=== PATIENT | female | born 1970 | race American Indian/Alaskan Native ===

== ENCOUNTER 2017-11-30 12:59 | Inpatient (IN) | payer MEDICARE, OTHER ==
[2017-11-30 13:21] VITALS: BMI 53.1
--- NOTE | 2017-11-30 14:21 | ED PDOC ---
HPI: Psych/Substance Abuse Time Seen by Provider: 11/30/17 13:43 Chief Complaint (Nursing): Psychiatric Evaluation Chief Complaint (Provider): Worsening depression History Per: Patient History/Exam Limitations: no limitations Onset/Duration Of Symptoms: Other (x4 months) Additional History Per: Family (daughter at bedside) Additional Complaint(s): 47 year old female, with a past medical history of depression and anxiety, presents to ED for evaluation of worsening depression since August 2017. Patient reports that on August 31, she lost her grandmother and since then, she states she has not been sleeping well and cannot concentrate. She indicates she saw her PMD for this and she was prescribed Zyprexa, which patient has not been taking every day as prescribed. She reports no relief of symptoms and felt overwhelmed today as she couldn't handle the noise of her children, prompting visit to the ED for psychiatric evaluation. She indicates that she thinks of committing suicide often, but has no plan. Otherwise denies hallucinations and homicidal ideation. Patient is unsure of LMP. Psych MD: Dr. 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"), Bronchitis, Depression, Gastritis, HTN, Migraine Denies: Chronic Kidney Disease - Surgical History Surgical History: Other surgeries: Gastric bypass and procedure to right foot - Family History Family History: States: Unknown Family Hx - Home Medications Home Medications: Ambulatory Orders Medication Instructions Recorded Alprazolam [Xanax] 0.5 mg PO HS PRN #0 tab 06/14/16 Escitalopram [Lexapro] 20 mg PO DAILY #0 tab 06/14/16 Pantoprazole [Protonix] 40 mg PO DAILY #0 ect 06/14/16 Acetaminophen/Codeine 1 ea PO Q8 PRN #0 tab 07/27/16 [Tylenol/Codeine 300 MG/30 MG] Aspirin [Ecotrin] 81 mg PO DAILY tabec 07/27/16 DULoxetine [Cymbalta] 60 mg PO HS ecc 07/27/16 Enalapril Maleate [Vasotec] 10 mg PO DAILY tab 07/27/16 Rosuvastatin Calcium [Crestor] 20 mg PO HS tab 07/27/16 hydroCHLOROthiazide [Microzide] 12.5 mg PO DAILY cap 07/27/16 - Allergies Allergies/Adverse Reactions: Allergies Allergy/AdvReac Type Severity Reaction Status Date / Time ibuprofen AdvReac Unknown ANAPHYLAXIS Verified 11/30/17 14:34 Review of Systems ROS Statement: Except As Marked, All Systems Reviewed And Found Negative Psych: Positive for: Depression, Suicidal ideation. Negative for: Other ( suicidal plan, hallucinations, or homicidal ideation) Physical Exam - Reviewed Nursing Documentation Reviewed: Yes Vital Signs Reviewed: Yes - Physical Exam Comments: GENERAL APPEARANCE: Patient is awake, alert, oriented x 3, in no acute distress. (+) morbid obesity SKIN: Warm, dry; (-) cyanosis EYES: (-) conjunctival pallor, (-) scleral icterus, (-) nystagmus. ENMT: Mucous membranes moist. Airway patent: (-) stridor. NECK: Supple (-) tenderness, (-) stiffness CHEST AND RESPIRATORY: (-) rales, (-) rhonchi, (-) wheezes; Decreased breath sounds bilaterally. ABDOMEN: Soft, (-) distention, (-) tenderness, (-) guarding. NEURO AND PSYCH: Mental status as above. Affect: flat bobcat operator: Intact. Pupils equal and reactive; EOMI; (-) facial asymmetry ; tongue and uvula midline. Strength symmetric. - Laboratory Results Result Diagrams: 12/01/17 05:30 12/01/17 05:30 Urine POC: Negative - ECG O2 Sat by Pulse Oximetry: 96 (RA) Pulse Ox Interpretation: Normal Medical Decision Making Medical Decision Making: Initial Impression: depression, psychiatric evaluation Initial Plan: Crisis evaluation Urine 1430 Urine : Negative Per crisis evaluation, patient to be admitted for Depression per Dr Pierre. -CBC, CMP, Urine Drug Screen, Urinalysis, CXR, EKG ordered. 1550 EKG: NSR @ 89 bpm (-) ST elevations, QTc 467 1615 Labs reviewed and patient noted to have UTI. Macrobid 100mg PO ordered. Urine culture ordered. CXR reviewed: HISTORY: admission COMPARISON: No prior. TECHNIQUE: Chest PA and lateral FINDINGS: LUNGS: Deae-et-arndygxe pulmonary vascular congestion is noted. No evidence of focal consolidation in the lungs. PLEURA: Blunting of the right costophrenic angle likely due to pleural effusion. There is also possible trace fluid in the right fissure. CARDIOVASCULAR: Normal. OSSEOUS STRUCTURES: No significant abnormalities. VISUALIZED UPPER ABDOMEN: Normal. OTHER FINDINGS: None. IMPRESSION: Tdwd-bf-ofrwrbbi vascular congestion. Suspicious for small right pleural effusion. [address] Lilly, patient will be admitted to med/surg floor with psychiatry on consult. Case discussed with Dr Magana, covering for Dr Way, who admits for Dr Gudino' s patient's. Agreeable to admission at this time. Repeat HR: 92 BNP and Troponin ordered. 1745 BNP: 454 Troponin: < 0.01 Arrangements made for admission. ------ Scribe Attestation: Documented by Puneet Clayton acting as a scribe for Jessica PARISH. Provider Scribe Attestation: All medical record entries made by the Scribe were at my direction and personally dictated by me. I have reviewed the chart and agree that the record accurately reflects my personal performance of the history, physical exam, medical decision making, and the department course for this patient. I have also personally directed, reviewed, and agree with the discharge instructions and disposition. Disposition - Clinical Impression Clinical Impression: UTI (urinary tract infection), Depression, Pleural effusion, Pulmonary vascular congestion - Patient ED Disposition Is Patient to be Admitted: Yes Counseled Patient/Family Regarding: Studies Performed, Diagnosis - Disposition Disposition Time: 17:33 Condition: FAIR - Pt Status Changed To: Hospital Disposition Of: Inpatient - Admit Certification Admit to Inpatient:: After my assessment, the patient will require hospitalization for at least two midnights. This is because of the severity of symptoms shown, intensity of services needed, and/or the medical risk in this patient being treated as an outpatient. Results - Lab Results Lab Results: 11/30/17 11/30/17 11/30/17 14:51 14:51 14:51 WBC RBC Hgb Hct MCV MCH MCHC RDW Plt Count MPV Neut % (Auto) Lymph % (Auto) [place] % (Auto) Eos % (Auto) Baso % (Auto) Neut # (Auto) Lymph # (Auto) [place] # (Auto) Eos # (Auto) Baso # (Auto) Sodium 139 Potassium 3.9 Chloride 101 Carbon Dioxide 29 Anion Gap 13 BUN 10 Creatinine 0.7 Est GFR ( Amer) > 60 Est GFR (Non-Af Amer) > 60 Random Glucose 100 Calcium 8.0 L Total Bilirubin 0.4 AST 18 ALT 24 Alkaline Phosphatase 78 Total Protein 7.0 Albumin 3.7 Globulin 3.3 Albumin/Globulin Ratio 1.1 Urine Color Yellow Urine Clarity Cloudy Urine pH 5.0 Ur Specific [place] 1.025 Urine Protein Negative Urine Glucose (UA) Neg Urine Ketones Negative Urine Blood Negative Urine Nitrate Positive H Urine Bilirubin Negative Urine Urobilinogen 0.2-1.0 Ur Leukocyte Esterase Large Urine RBC (Auto) 3 Urine Microscopic WBC 13 H Ur Squamous Epith Cells 3 Urine Bacteria Occ H Urine Opiates Screen Positive H Urine Methadone Screen Negative Ur Barbiturates Screen Negative Ur Phencyclidine Scrn Negative Ur Amphetamines Screen Negative U Benzodiazepines Scrn Positive U Oth Cocaine Metabols Negative U Cannabinoids Screen Positive H 11/30/17 14:51 WBC 13.0 H RBC 4.60 Hgb 9.4 L Hct 32.2 L MCV 69.8 L MCH 20.3 L MCHC 29.1 L RDW 20.4 H Plt Count 242 MPV 9.1 Neut % (Auto) 68.4 Lymph % (Auto) 24.7 [place] % (Auto) 6.0 Eos % (Auto) 0.6 Baso % (Auto) 0.3 Neut # (Auto) 8.8 H Lymph # (Auto) 3.2 [place] # (Auto) 0.8 Eos # (Auto) 0.1 Baso # (Auto) 0.0 Sodium Potassium Chloride Carbon Dioxide Anion Gap BUN Creatinine Est GFR ( Amer) Est GFR (Non-Af Amer) Random Glucose Calcium Total Bilirubin AST ALT Alkaline Phosphatase Total Protein Albumin Globulin Albumin/Globulin Ratio Urine Color Urine Clarity Urine pH Ur Specific [place] Urine Protein Urine Glucose (UA) Urine Ketones Urine Blood Urine Nitrate Urine Bilirubin Urine Urobilinogen Ur Leukocyte Esterase Urine RBC (Auto) Urine Microscopic WBC Ur Squamous Epith Cells Urine Bacteria Urine Opiates Screen Urine Methadone Screen Ur Barbiturates Screen Ur Phencyclidine Scrn Ur Amphetamines Screen U Benzodiazepines Scrn U Oth Cocaine Metabols U Cannabinoids Screen
[2017-11-30 14:59] LABS: SQUAMOUS EPITHIAL 3 /hpf (0-5); URINE BACTERIA OCC (<OCC); URINE BILIRUBIN NEGATIVE (NEGATIVE); URINE BLOOD NEGATIVE (NEGATIVE); URINE CLARITY CLOUDY (Clear); URINE COLOR YELLOW (YELLOW); URINE GLUCOSE (UA) NEG (Normal); URINE LEUKOCYTE ESTERASE LARGE Leu/uL (Negative); URINE PROTEIN NEGATIVE (NEGATIVE); URINE UROBILINOGEN 0.2-1.0 mg/dL (0.2-1.0)
[2017-11-30 15:08] LABS: ALB/GLOB RATIO 1.1 (1.0-2.1); ALBUMIN 3.7 g/dL (3.5-5.0); ALT/SGPT 24 U/L (9-52); AST/SGOT 18 U/L (14-36); BLOOD UREA NITROGEN 10 mg/dl (7-17); GFR AFRICAN-AMERICAN > 60; GFR NON-AFRICAN AMERICAN > 60
[2017-11-30 15:09] LABS: EOS # 0.1 K/uL (0.0-0.7); EOS % 0.6 % (0.0-4.0); HEMOGLOBIN 9.4 g/dL (12.0-16.0); MONO # 0.8 K/uL (0.0-0.8)
[2017-11-30 15:34] LABS: BASO % 0.3 % (0.0-2.0); LYMPH # 3.2 K/uL (1.0-4.3); LYMPH % 24.7 % (20.0-40.0); MEAN CELL VOLUME 69.8 fl (81.0-99.0); MEAN CORPUSCULAR HEMOGLOBIN 20.3 pg (27.0-31.0); MEAN CORPUSCULAR HGB CONC 29.1 g/dL (33.0-37.0); MEAN PLATELET VOLUME 9.1 fl (7.2-11.7); NEUT # 8.8 K/uL (1.8-7.0); NEUT % 68.4 % (50.0-75.0); NRBC % 0.3 % (0.0-0.0); RBC 4.6 Mil/uL (3.80-5.20); RED CELL DISTRIBUTION WIDTH 20.4 % (11.5-14.5)
[2017-11-30 15:36] LABS: BARBITURATES, UR NEGATIVE (NEGATIVE); BENZODIAZEPINES, UR POSITIVE (NEGATIVE); OPIATES, UR POSITIVE (NEGATIVE); PHENCYCLIDINE, UR NEGATIVE (NEGATIVE)
--- NOTE | 2017-11-30 16:22 | RAD ---
HISTORY: admission COMPARISON: No prior. TECHNIQUE: Chest PA and lateral FINDINGS: LUNGS: Yfzj-hb-bacigryj pulmonary vascular congestion is noted. No evidence of focal consolidation in the lungs. PLEURA: Blunting of the right costophrenic angle likely due to pleural effusion. There is also possible trace fluid in the right fissure. CARDIOVASCULAR: Normal. OSSEOUS STRUCTURES: No significant abnormalities. VISUALIZED UPPER ABDOMEN: Normal. OTHER FINDINGS: None. IMPRESSION: Qept-rp-jevadkzf vascular congestion. Suspicious for small right pleural effusion.
[2017-11-30 17:43] LABS: B-TYPE NATRIURETIC PEPTIDE 454 pg/ml (0-450)
[2017-12-01] MEDS: Oxycodone/Acetaminophen 5/325 mg Tab PO PRN ×4 (01:06→21:43)
[2017-12-01 07:14] LABS: BASO % 0.3 % (0.0-2.0); EOS # 0.1 K/uL (0.0-0.7); EOS % 1.1 % (0.0-4.0); HEMOGLOBIN 9.1 g/dL (12.0-16.0); LYMPH # 3.1 K/uL (1.0-4.3); LYMPH % 29.7 % (20.0-40.0); MEAN CORPUSCULAR HEMOGLOBIN 20.3 pg (27.0-31.0); MEAN CORPUSCULAR HGB CONC 28.9 g/dL (33.0-37.0); MEAN PLATELET VOLUME 9.2 fl (7.2-11.7); MONO # 0.6 K/uL (0.0-0.8); MONO % 5.7 % (0.0-10.0); NEUT # 6.6 K/uL (1.8-7.0); NEUT % 63.2 % (50.0-75.0); NRBC % 0.1 % (0.0-0.0); RBC 4.5 Mil/uL (3.80-5.20); RED CELL DISTRIBUTION WIDTH 20.3 % (11.5-14.5); WHITE BLOOD COUNT 10.4 K/uL (4.8-10.8)
[2017-12-01 07:31] LABS: ALB/GLOB RATIO 1.1 (1.0-2.1); ALBUMIN 3.6 g/dL (3.5-5.0); ALT/SGPT 23 U/L (9-52); AST/SGOT 29 U/L (14-36); B-TYPE NATRIURETIC PEPTIDE 308 pg/ml (0-450); BLOOD UREA NITROGEN 10 mg/dl (7-17); CALCIUM 8.3 mg/dL (8.4-10.2); GFR AFRICAN-AMERICAN > 60; GFR NON-AFRICAN AMERICAN > 60
[2017-12-01] MEDS: Potassium Chloride 20 mEq ER Tab PO SCH (08:45)
[2017-12-01] MEDS: Enoxaparin 60 mg Syringe SC SCH (08:45)
[2017-12-01] MEDS: Pantoprazole 40 mg EC Tab PO SCH (08:46)
[2017-12-01] MEDS ORDERED: Enoxaparin 30 mg Syringe SC SCH (09:00)
--- NOTE | 2017-12-01 11:35 | CP.PCM.HP ---
History of Present Illness - History of Present Illness History of Present Illness: This is a 47 y/o female admitted for evaluation of worsening of depressive symptoms. She claims that she sought ER evaluation after having a a very bad nightmare at home. She was short of breath after the episode but denies chest pain. Past Patient History - Infectious Disease Hx of Infectious Diseases: None - Past Medical History & Family History Past Medical History?: Yes - Past Social History Smoking Status: Light Smoker < 10 Cigarettes Daily - CARDIAC Hx Cardiac Disorders: Yes Hx Hypertension: Yes - PULMONARY Hx Respiratory Disorders: Yes Hx Bronchitis: Yes - NEUROLOGICAL Hx Neurological Disorder: Yes Hx Migraine: Yes - HEENT Hx HEENT Problems: No - RENAL Hx Chronic Kidney Disease: No - HEMATOLOGICAL/ONCOLOGICAL Hx Cancer: No Hx Human Immunodeficiency Virus (HIV): No - INTEGUMENTARY Hx Dermatological Problems: No - MUSCULOSKELETAL/RHEUMATOLOGICAL Hx Musculoskeletal Disorders: Yes Hx Arthritis: Yes Hx Falls: Yes - GASTROINTESTINAL Hx Gastrointestinal Disorders: Yes Hx Gastritis: Yes - GENITOURINARY/GYNECOLOGICAL Hx Sexually Transmitted Disorders: No - PSYCHIATRIC Hx Psychophysiologic Disorder: Yes Hx Anxiety: Yes Hx Depression: Yes Hx Substance Use: Yes (marijuana; (+) nitrates and opiates in [place]) - SURGICAL HISTORY Hx Surgeries: Yes Hx Section: Yes Other/Comment: foot surg; stomach bypass - ANESTHESIA Hx Anesthesia: Yes Hx Anesthesia Reactions: No Hx Malignant Hyperthermia: No Meds Allergies/Adverse Reactions: Allergies Allergy/AdvReac Type Severity Reaction Status Date / Time ibuprofen AdvReac Unknown ANAPHYLAXIS Verified 11/30/17 14:34 Results - Vital Signs Recent Vital Signs: Last Vital Signs Temp 98.1 F 12/01/17 08:31 Pulse 85 12/01/17 08:31 Resp 20 12/01/17 08:31 BP 102/67 12/01/17 08:45 Pulse Ox 91 L 12/01/17 08:31 - Labs Result Diagrams: 12/01/17 05:30 12/01/17 05:30 Labs: Laboratory Results - last 24 hr 11/30/17 11/30/17 11/30/17 14:51 14:51 14:51 WBC 13.0 H RBC 4.60 Hgb 9.4 L Hct 32.2 L MCV 69.8 L MCH 20.3 L MCHC 29.1 L RDW 20.4 H Plt Count 242 MPV 9.1 Neut % (Auto) 68.4 Lymph % (Auto) 24.7 [place] % (Auto) 6.0 Eos % (Auto) 0.6 Baso % (Auto) 0.3 Neut # (Auto) 8.8 H Lymph # (Auto) 3.2 [place] # (Auto) 0.8 Eos # (Auto) 0.1 Baso # (Auto) 0.0 Sodium 139 Potassium 3.9 Chloride 101 Carbon Dioxide 29 Anion Gap 13 BUN 10 Creatinine 0.7 Est GFR ( Amer) > 60 Est GFR (Non-Af Amer) > 60 Random Glucose 100 Calcium 8.0 L Total Bilirubin 0.4 AST 18 ALT 24 Alkaline Phosphatase 78 Troponin I NT-Pro-B Natriuret Pep Total Protein 7.0 Albumin 3.7 Globulin 3.3 Albumin/Globulin Ratio 1.1 Urine Color Urine Clarity Urine pH Ur Specific [place] Urine Protein Urine Glucose (UA) Urine Ketones Urine Blood Urine Nitrate Urine Bilirubin Urine Urobilinogen Ur Leukocyte Esterase Urine RBC (Auto) Urine Microscopic WBC Ur Squamous Epith Cells Urine Bacteria Urine Opiates Screen Positive H Urine Methadone Screen Negative Ur Barbiturates Screen Negative Ur Phencyclidine Scrn Negative Ur Amphetamines Screen Negative U Benzodiazepines Scrn Positive U Oth Cocaine Metabols Negative U Cannabinoids Screen Positive H 11/30/17 11/30/17 12/01/17 14:51 17:18 05:30 WBC 10.4 RBC 4.50 Hgb 9.1 L Hct 31.5 L MCV 70.0 L MCH 20.3 L MCHC 28.9 L RDW 20.3 H Plt Count 255 MPV 9.2 Neut % (Auto) 63.2 Lymph % (Auto) 29.7 [place] % (Auto) 5.7 Eos % (Auto) 1.1 Baso % (Auto) 0.3 Neut # (Auto) 6.6 Lymph # (Auto) 3.1 [place] # (Auto) 0.6 Eos # (Auto) 0.1 Baso # (Auto) 0.0 Sodium Potassium Chloride Carbon Dioxide Anion Gap BUN Creatinine Est GFR ( Amer) Est GFR (Non-Af Amer) Random Glucose Calcium Total Bilirubin AST ALT Alkaline Phosphatase Troponin I < 0.0120 NT-Pro-B Natriuret Pep 454 H Total Protein Albumin Globulin Albumin/Globulin Ratio Urine Color Yellow Urine Clarity Cloudy Urine pH 5.0 Ur Specific [place] 1.025 Urine Protein Negative Urine Glucose (UA) Neg Urine Ketones Negative Urine Blood Negative Urine Nitrate Positive H Urine Bilirubin Negative Urine Urobilinogen 0.2-1.0 Ur Leukocyte Esterase Large Urine RBC (Auto) 3 Urine Microscopic WBC 13 H Ur Squamous Epith Cells 3 Urine Bacteria Occ H Urine Opiates Screen Urine Methadone Screen Ur Barbiturates Screen Ur Phencyclidine Scrn Ur Amphetamines Screen U Benzodiazepines Scrn U Oth Cocaine Metabols U Cannabinoids Screen 12/01/17 05:30 WBC RBC Hgb Hct MCV MCH MCHC RDW Plt Count MPV Neut % (Auto) Lymph % (Auto) [place] % (Auto) Eos % (Auto) Baso % (Auto) Neut # (Auto) Lymph # (Auto) [place] # (Auto) Eos # (Auto) Baso # (Auto) Sodium 139 Potassium 4.0 Chloride 99 Carbon Dioxide 30 Anion Gap 14 BUN 10 Creatinine 0.6 L Est GFR ( Amer) > 60 Est GFR (Non-Af Amer) > 60 Random Glucose 101 Calcium 8.3 L Total Bilirubin 0.6 AST 29 ALT 23 Alkaline Phosphatase 80 Troponin I NT-Pro-B Natriuret Pep 308 Total Protein 6.9 Albumin 3.6 Globulin 3.4 Albumin/Globulin Ratio 1.1 Urine Color Urine Clarity Urine pH Ur Specific [place] Urine Protein Urine Glucose (UA) Urine Ketones Urine Blood Urine Nitrate Urine Bilirubin Urine Urobilinogen Ur Leukocyte Esterase Urine RBC (Auto) Urine Microscopic WBC Ur Squamous Epith Cells Urine Bacteria Urine Opiates Screen Urine Methadone Screen Ur Barbiturates Screen Ur Phencyclidine Scrn Ur Amphetamines Screen U Benzodiazepines Scrn U Oth Cocaine Metabols U Cannabinoids Screen
--- NOTE | 2017-12-01 13:43 | CP.PCM.PN ---
Subjective - Date & Time of Evaluation Date of Evaluation: 12/01/17 Time of Evaluation: 13:42 - Subjective Subjective: Patient continues to do well. Has no chest pain or SOB Not seen by a Psych yet. Objective - Vital Signs/Intake and Output Vital Signs (last 24 hours): Temp Pulse Resp BP Pulse Ox 98.1 F 85 20 102/67 91 L 12/01/17 08:31 12/01/17 08:31 12/01/17 08:31 12/01/17 08:45 12/01/17 08:31 - Medications Medications: Current Medications Alprazolam (Xanax) 1 mg PO TID PRN PRN Reason: Anxiety Last Admin: 12/01/17 06:18 Dose: 1 mg Atorvastatin Calcium (Lipitor) 40 mg PO HS [facility] Duloxetine HCl (Cymbalta) 60 mg PO HS [facility] Last Admin: 12/01/17 01:48 Dose: 60 mg Enalapril Maleate (Vasotec) 10 mg PO DAILY [facility] Last Admin: 12/01/17 08:46 Dose: 10 mg Enoxaparin Sodium (Lovenox) 50 mg SC DAILY [facility] PRN Reason: Protocol Last Admin: 12/01/17 08:45 Dose: 50 mg Furosemide (Lasix) 40 mg PO DAILY [facility] Last Admin: 12/01/17 08:45 Dose: 40 mg Hydrochlorothiazide (Microzide) 12.5 mg PO DAILY [facility] Last Admin: 12/01/17 08:46 Dose: 12.5 mg Oxycodone/Acetaminophen (Percocet 5/325 Mg Tab) 2 tab PO Q4 PRN PRN Reason: Pain, moderate (4-7) Stop: 12/04/17 00:43 Last Admin: 12/01/17 12:50 Dose: 2 tab Pantoprazole Sodium (Protonix Ec Tab) 40 mg PO DAILY [facility] Last Admin: 12/01/17 08:46 Dose: 40 mg Potassium Chloride (K-Dur 20 Meq Er Tab) 20 meq PO DAILY [facility] Last Admin: 12/01/17 08:45 Dose: 20 meq - Labs Labs: 12/01/17 05:30 12/01/17 05:30
--- NOTE | 2017-12-01 15:32 | CP.PCM.CON ---
History of Present Illness - History of Present Illness History of Present Illness: This is a 47 yr old female with h/o depression,hallucinations. and anxiety and came to ER because of feeling very depressed with suicidal thoughts but no plan stemming from of mother in august and pt medically admitted for fluids in lungs and psych consult called for evaluation.pt was seeing a psychiatrist and prescribed zyprexa and cymbalta and she stopped zyprexa. pt has originally signed voluntary consent for admission but now denies everything and does not want to be admitted Past Patient History - Infectious Disease Hx of Infectious Diseases: None - Past Medical History & Family History Past Medical History?: Yes - Past Social History Smoking Status: Light Smoker < 10 Cigarettes Daily - CARDIAC Hx Cardiac Disorders: Yes Hx Hypertension: Yes - PULMONARY Hx Respiratory Disorders: Yes Hx Bronchitis: Yes - NEUROLOGICAL Hx Neurological Disorder: Yes Hx Migraine: Yes - HEENT Hx HEENT Problems: No - RENAL Hx Chronic Kidney Disease: No - HEMATOLOGICAL/ONCOLOGICAL Hx Cancer: No Hx Human Immunodeficiency Virus (HIV): No - INTEGUMENTARY Hx Dermatological Problems: No - MUSCULOSKELETAL/RHEUMATOLOGICAL Hx Musculoskeletal Disorders: Yes Hx Arthritis: Yes Hx Falls: Yes - GASTROINTESTINAL Hx Gastrointestinal Disorders: Yes Hx Gastritis: Yes - GENITOURINARY/GYNECOLOGICAL Hx Sexually Transmitted Disorders: No - PSYCHIATRIC Hx Psychophysiologic Disorder: Yes Hx Anxiety: Yes Hx Depression: Yes Hx Substance Use: Yes (marijuana; (+) nitrates and opiates in [place]) - SURGICAL HISTORY Hx Surgeries: Yes Hx Section: Yes Other/Comment: foot surg; stomach bypass - ANESTHESIA Hx Anesthesia: Yes Hx Anesthesia Reactions: No Hx Malignant Hyperthermia: No Meds Allergies/Adverse Reactions: Allergies Allergy/AdvReac Type Severity Reaction Status Date / Time ibuprofen AdvReac Unknown ANAPHYLAXIS Verified 11/30/17 14:34 - Medications Medications: Current Medications Alprazolam (Xanax) 1 mg PO TID PRN PRN Reason: Anxiety Last Admin: 12/01/17 14:31 Dose: 1 mg Atorvastatin Calcium (Lipitor) 40 mg PO HS [facility] Duloxetine HCl (Cymbalta) 60 mg PO HS [facility] Last Admin: 12/01/17 01:48 Dose: 60 mg Enalapril Maleate (Vasotec) 10 mg PO DAILY [facility] Last Admin: 12/01/17 08:46 Dose: 10 mg Enoxaparin Sodium (Lovenox) 50 mg SC DAILY [facility] PRN Reason: Protocol Last Admin: 12/01/17 08:45 Dose: 50 mg Furosemide (Lasix) 40 mg PO DAILY [facility] Last Admin: 12/01/17 08:45 Dose: 40 mg Hydrochlorothiazide (Microzide) 12.5 mg PO DAILY [facility] Last Admin: 12/01/17 08:46 Dose: 12.5 mg Nicotine (Nicoderm Cq) 1 patch TD DAILY [facility] Last Admin: 12/01/17 14:32 Dose: 1 patch Oxycodone/Acetaminophen (Percocet 5/325 Mg Tab) 2 tab PO Q4 PRN PRN Reason: Pain, moderate (4-7) Stop: 12/04/17 00:43 Last Admin: 12/01/17 12:50 Dose: 2 tab Pantoprazole Sodium (Protonix Ec Tab) 40 mg PO DAILY [facility] Last Admin: 12/01/17 08:46 Dose: 40 mg Potassium Chloride (K-Dur 20 Meq Er Tab) 20 meq PO DAILY [facility] Last Admin: 12/01/17 08:45 Dose: 20 meq Physical Exam - Psychiatric Exam Psychiatric exam: Anxious, Flat Affect Additional comments: pt is alert,oriented with intact cognition.pt denies hallucinations and denies suicidal ideation.pt is internlly preoccupied with poor insight about her psychosis.pt minimises the psychosis and her depression. Results - Vital Signs Recent Vital Signs: Last Vital Signs Temp 98.1 F 12/01/17 08:31 Pulse 85 12/01/17 08:31 Resp 20 12/01/17 08:31 BP 102/67 12/01/17 08:45 Pulse Ox 91 L 12/01/17 08:31 - Labs Result Diagrams: 12/01/17 05:30 12/01/17 05:30 Labs: Laboratory Results - last 24 hr 11/30/17 11/30/17 11/30/17 14:51 14:51 17:18 WBC 13.0 H RBC 4.60 Hgb 9.4 L Hct 32.2 L MCV 69.8 L MCH 20.3 L MCHC 29.1 L RDW 20.4 H Plt Count 242 MPV 9.1 Neut % (Auto) 68.4 Lymph % (Auto) 24.7 [place] % (Auto) 6.0 Eos % (Auto) 0.6 Baso % (Auto) 0.3 Neut # (Auto) 8.8 H Lymph # (Auto) 3.2 [place] # (Auto) 0.8 Eos # (Auto) 0.1 Baso # (Auto) 0.0 Sodium Potassium Chloride Carbon Dioxide Anion Gap BUN Creatinine Est GFR ( Amer) Est GFR (Non-Af Amer) Random Glucose Calcium Total Bilirubin AST ALT Alkaline Phosphatase Troponin I < 0.0120 NT-Pro-B Natriuret Pep 454 H Total Protein Albumin Globulin Albumin/Globulin Ratio Urine Opiates Screen Positive H Urine Methadone Screen Negative Ur Barbiturates Screen Negative Ur Phencyclidine Scrn Negative Ur Amphetamines Screen Negative U Benzodiazepines Scrn Positive U Oth Cocaine Metabols Negative U Cannabinoids Screen Positive H 12/01/17 12/01/17 05:30 05:30 WBC 10.4 RBC 4.50 Hgb 9.1 L Hct 31.5 L MCV 70.0 L MCH 20.3 L MCHC 28.9 L RDW 20.3 H Plt Count 255 MPV 9.2 Neut % (Auto) 63.2 Lymph % (Auto) 29.7 [place] % (Auto) 5.7 Eos % (Auto) 1.1 Baso % (Auto) 0.3 Neut # (Auto) 6.6 Lymph # (Auto) 3.1 [place] # (Auto) 0.6 Eos # (Auto) 0.1 Baso # (Auto) 0.0 Sodium 139 Potassium 4.0 Chloride 99 Carbon Dioxide 30 Anion Gap 14 BUN 10 Creatinine 0.6 L Est GFR ( Amer) > 60 Est GFR (Non-Af Amer) > 60 Random Glucose 101 Calcium 8.3 L Total Bilirubin 0.6 AST 29 ALT 23 Alkaline Phosphatase 80 Troponin I NT-Pro-B Natriuret Pep 308 Total Protein 6.9 Albumin 3.6 Globulin 3.4 Albumin/Globulin Ratio 1.1 Urine Opiates Screen Urine Methadone Screen Ur Barbiturates Screen Ur Phencyclidine Scrn Ur Amphetamines Screen U Benzodiazepines Scrn U Oth Cocaine Metabols U Cannabinoids Screen Assessment & Plan - Assessment and Plan (Free Text) Assessment: major depression with psychotic features Plan: Pt will benefit from voluntary inpt psych admission once medically stabilized and cleared . wwill start pt on zyprexa 5 mg hs pt will be referred to [facility] for inpt psych admission.
[2017-12-02 00:14] VITALS: RESP 19
[2017-12-02] MEDS: Oxycodone/Acetaminophen 5/325 mg Tab PO PRN ×2 (05:05→14:21)
[2017-12-02 08:16] VITALS: PULSE 94; TEMP 98; O2SAT 95
[2017-12-02] MEDS: Enoxaparin 60 mg Syringe SC SCH (08:44)
[2017-12-02] MEDS: Potassium Chloride 20 mEq ER Tab PO SCH (08:47)
[2017-12-02] MEDS: Pantoprazole 40 mg EC Tab PO SCH (09:03)
--- NOTE | 2017-12-02 12:00 | CP.PCM.PCO ---
Assessment/Plan - Assessment/Plan Assessment (Free Text): Pt stable, seen and cleared by Dr. Magana for d/c to psych unit. Urine + E coli , sensitive to Marobid. Pt to continue Macrobid x [address] Magana. Pt agreeable to psych admission. Call out to to obtain consent. Pt and RN aware of plan.
[2017-12-02 12:08] VITALS: BP 94/80
--- NOTE | 2017-12-02 14:35 | CARD ---
APPROVED REPORT EKG Measurement Heart [id number] [id number] <Conclusion> Normal sinus rhythm Normal ECG
--- NOTE | 2017-12-02 14:56 | CP.PCM.CON ---
History of Present Illness - History of Present Illness History of Present Illness: Follow up consult, pt is 47ys old female admitted initially presenting to ER with suicidal ideation, pt had to be admitted to medical floor for stabilization pt on evaluation continues to be depressed and tearful, stating she lost her mother her 22ys old son and her within a very short period of time, she hs two young children and due to financial difficulties, she is facing eviction in December, daughter present by bed side giving collateral information stating that pt has been depressed , and non compliant with her medications , she also has been admitted to [facility] in 2005 after suicidal attempt by overdose on her medications pt reported poor sleep , feeling helpless and hopeless due to her current living situation, denied homicidal ideation, pt has been using cannabis daily Past Patient History - Infectious Disease Hx of Infectious Diseases: None - Past Medical History & Family History Past Medical History?: Yes - Past Social History Smoking Status: Light Smoker < 10 Cigarettes Daily - CARDIAC Hx Cardiac Disorders: Yes Hx Hypertension: Yes - PULMONARY Hx Respiratory Disorders: Yes Hx Bronchitis: Yes - NEUROLOGICAL Hx Neurological Disorder: Yes Hx Migraine: Yes - HEENT Hx HEENT Problems: No - RENAL Hx Chronic Kidney Disease: No - HEMATOLOGICAL/ONCOLOGICAL Hx Cancer: No Hx Human Immunodeficiency Virus (HIV): No - INTEGUMENTARY Hx Dermatological Problems: No - MUSCULOSKELETAL/RHEUMATOLOGICAL Hx Musculoskeletal Disorders: Yes Hx Arthritis: Yes Hx Falls: Yes - GASTROINTESTINAL Hx Gastrointestinal Disorders: Yes Hx Gastritis: Yes - GENITOURINARY/GYNECOLOGICAL Hx Sexually Transmitted Disorders: No - PSYCHIATRIC Hx Psychophysiologic Disorder: Yes Hx Anxiety: Yes Hx Depression: Yes Hx Substance Use: Yes (marijuana; (+) nitrates and opiates in [place]) - SURGICAL HISTORY Hx Surgeries: Yes Hx Section: Yes Other/Comment: foot surg; stomach bypass - ANESTHESIA Hx Anesthesia: Yes Hx Anesthesia Reactions: No Hx Malignant Hyperthermia: No Meds Home Medications: Home Medication List Medication Instructions Recorded Confirmed Type Nitrofurantoin Macrocrystals 100 mg PO BID #20 cap 12/02/17 Rx [Macrobid] Allergies/Adverse Reactions: Allergies Allergy/AdvReac Type Severity Reaction Status Date / Time ibuprofen AdvReac Unknown ANAPHYLAXIS Verified 11/30/17 14:34 - Medications Medications: Current Medications Alprazolam (Xanax) 1 mg PO TID PRN PRN Reason: Anxiety Last Admin: 12/02/17 08:56 Dose: 1 mg Atorvastatin Calcium (Lipitor) 40 mg PO HS [facility] Last Admin: 12/01/17 21:38 Dose: 40 mg Duloxetine HCl (Cymbalta) 60 mg PO HS [facility] Last Admin: 12/01/17 21:38 Dose: 60 mg Enalapril Maleate (Vasotec) 10 mg PO DAILY [facility] Last Admin: 12/02/17 12:09 Dose: Not Given Enoxaparin Sodium (Lovenox) 50 mg SC DAILY [facility] PRN Reason: Protocol Last Admin: 12/02/17 08:44 Dose: 50 mg Furosemide (Lasix) 40 mg PO DAILY [facility] Last Admin: 12/02/17 12:08 Dose: Not Given Hydrochlorothiazide (Microzide) 12.5 mg PO DAILY [facility] Last Admin: 12/02/17 12:08 Dose: Not Given Hydroxyzine Pamoate (Vistaril) 25 mg PO [facility] Last Admin: 12/01/17 21:39 Dose: 25 mg Ceftriaxone Sodium 1 gm/ (Sodium Chloride) 100 mls @ 100 mls/hr IVPB DAILY [facility] PRN Reason: Protocol Last Admin: 12/02/17 10:17 Dose: 100 mls/hr Nicotine (Nicoderm Cq) 1 patch TD DAILY [facility] Last Admin: 12/02/17 08:45 Dose: 1 patch Olanzapine (Zyprexa) 5 mg PO [facility] Last Admin: 12/01/17 21:38 Dose: 5 mg Oxycodone/Acetaminophen (Percocet 5/325 Mg Tab) 2 tab PO Q4 PRN PRN Reason: Pain, moderate (4-7) Stop: 12/04/17 00:43 Last Admin: 12/02/17 14:21 Dose: 2 tab Pantoprazole Sodium (Protonix Ec Tab) 40 mg PO DAILY [facility] Last Admin: 12/02/17 09:03 Dose: 40 mg Potassium Chloride (K-Dur 20 Meq Er Tab) 20 meq PO DAILY [facility] Last Admin: 12/02/17 08:47 Dose: 20 meq Physical Exam - Psychiatric Exam Additional comments: pt seen in bed , speech normal, cooperative depressed mood tearful affect, denied perceptual disturbances, passive suicidal ideation, denied homicidal ideation, alert awake , fair insight and judgment Results - Vital Signs Recent Vital Signs: Last Vital Signs Temp 98.0 F 12/02/17 08:16 Pulse 94 H 06/04/18 08:16 Resp 19 12/02/17 08:16 BP 94/80 L 12/02/17 12:08 Pulse Ox 95 12/02/17 08:16 - Labs Result Diagrams: 12/01/17 05:30 12/01/17 05:30 Labs: Laboratory Results - last 24 hr 12/02/17 12:20 HIV-1 Ab Rapid Screen Non reactive Assessment & Plan - Assessment and Plan (Free Text) Assessment: major depression recurrent severe cannabis abuse Plan: pt at current mental status would benifit from admission for suicidal risk and medication stabilization pt agreed to sign for voluntary admission
--- NOTE | 2017-12-03 06:53 | CP.PCM.DIS ---
Provider - Provider Date of Admission: 11/30/17 17:33 Attending physician: Kali Magana MD Hospital Course - Lab Results Lab Results: Micro Results 11/30/17 16:51 Urine,Clean Catch Urine Culture - Final Escherichia Coli Most Recent Lab Values WBC 10.4 K/uL (4.8-10.8) 12/01/17 05:30 RBC 4.50 Mil/uL (3.80-5.20) 12/01/17 05:30 Hgb 9.1 g/dL (12.0-16.0) L 12/01/17 05:30 Hct 31.5 % (34.0-47.0) L 12/01/17 05:30 MCV 70.0 fl (81.0-99.0) L 12/01/17 05:30 MCH 20.3 pg (27.0-31.0) L 12/01/17 05:30 MCHC 28.9 g/dL (33.0-37.0) L 12/01/17 05:30 RDW 20.3 % (11.5-14.5) H 12/01/17 05:30 Plt Count 255 K/uL (130-400) 12/01/17 05:30 MPV 9.2 fl (7.2-11.7) 12/01/17 05:30 Neut % (Auto) 63.2 % (50.0-75.0) 12/01/17 05:30 Lymph % (Auto) 29.7 % (20.0-40.0) 12/01/17 05:30 Dawson % (Auto) 5.7 % (0.0-10.0) 12/01/17 05:30 Eos % (Auto) 1.1 % (0.0-4.0) 12/01/17 05:30 Baso % (Auto) 0.3 % (0.0-2.0) 12/01/17 05:30 Neut # (Auto) 6.6 K/uL (1.8-7.0) 12/01/17 05:30 Lymph # (Auto) 3.1 K/uL (1.0-4.3) 12/01/17 05:30 Dawson # (Auto) 0.6 K/uL (0.0-0.8) 12/01/17 05:30 Eos # (Auto) 0.1 K/uL (0.0-0.7) 12/01/17 05:30 Baso # (Auto) 0.0 K/uL (0.0-0.2) 12/01/17 05:30 Sodium 139 mmol/l (132-148) 12/01/17 05:30 Potassium 4.0 MMOL/L (3.6-5.0) 12/01/17 05:30 Chloride 99 mmol/L (98-107) 12/01/17 05:30 Carbon Dioxide 30 mmol/L (22-30) 12/01/17 05:30 Anion Gap 14 (10-20) 12/01/17 05:30 BUN 10 mg/dl (7-17) 12/01/17 05:30 Creatinine 0.6 mg/dl (0.7-1.2) L 12/01/17 05:30 Est GFR ( Amer) > 60 12/01/17 05:30 Est GFR (Non-Af Amer) > 60 12/01/17 05:30 Random Glucose 101 mg/dL (65-105) 12/01/17 05:30 Calcium 8.3 mg/dL (8.4-10.2) L 12/01/17 05:30 Total Bilirubin 0.6 mg/dl (0.2-1.3) 12/01/17 05:30 AST 29 U/L (14-36) 12/01/17 05:30 ALT 23 U/L (9-52) 12/01/17 05:30 Alkaline Phosphatase 80 U/L (38-126) 12/01/17 05:30 Troponin I < 0.0120 ng/mL (0.00-0.120) 11/30/17 17:18 NT-Pro-B Natriuret Pep 308 pg/ml (0-450) 12/01/17 05:30 Total Protein 6.9 G/DL (6.3-8.2) 12/01/17 05:30 Albumin 3.6 g/dL (3.5-5.0) 12/01/17 05:30 Globulin 3.4 gm/dL (2.2-3.9) 12/01/17 05:30 Albumin/Globulin Ratio 1.1 (1.0-2.1) 12/01/17 05:30 Urine Color Yellow (YELLOW) 11/30/17 14:51 Urine Clarity Cloudy (Clear) 11/30/17 14:51 Urine pH 5.0 (5.0-8.0) 11/30/17 14:51 Ur Specific [place] 1.025 (1.003-1.030) 11/30/17 14:51 Urine Protein Negative mg/dL (NEGATIVE) 11/30/17 14:51 Urine Glucose (UA) Neg mg/dL (Normal) 11/30/17 14:51 Urine Ketones Negative mg/dL (NEGATIVE) 11/30/17 14:51 Urine Blood Negative (NEGATIVE) 11/30/17 14:51 Urine Nitrate Positive (NEGATIVE) H 11/30/17 14:51 Urine Bilirubin Negative (NEGATIVE) 11/30/17 14:51 Urine Urobilinogen 0.2-1.0 mg/dL (0.2-1.0) 11/30/17 14:51 Ur Leukocyte Esterase Large Zehra/uL (Negative) 11/30/17 14:51 Urine RBC (Auto) 3 /hpf (0-3) 11/30/17 14:51 Urine Microscopic WBC 13 /hpf (0-5) H 11/30/17 14:51 Ur Squamous Epith Cells 3 /hpf (0-5) 11/30/17 14:51 Urine Bacteria Occ (<OCC) H 11/30/17 14:51 Urine Opiates Screen Positive (NEGATIVE) H 11/30/17 14:51 Urine Methadone Screen Negative (NEGATIVE) 11/30/17 14:51 Ur Barbiturates Screen Negative (NEGATIVE) 11/30/17 14:51 Ur Phencyclidine Scrn Negative (NEGATIVE) 11/30/17 14:51 Ur Amphetamines Screen Negative (NEGATIVE) 11/30/17 14:51 U Benzodiazepines Scrn Positive (NEGATIVE) 11/30/17 14:51 U Oth Cocaine Metabols Negative (NEGATIVE) 11/30/17 14:51 U Cannabinoids Screen Positive (NEGATIVE) H 11/30/17 14:51 HIV-1 Ab Rapid Screen Non reactive (NON REAC) 12/02/17 12:20 - Hospital Course Hospital Course: This is a 47 y/o female admitted for SOB and worsening of depression and anxiety. Discharge Plan - Discharge Medications Prescriptions: Nitrofurantoin Macrocrystals [Macrobid] 100 mg PO BID #20 cap - Follow Up Plan Condition: FAIR Disposition: DISCHARGE TO [facility] Instructions: Pleural Effusion (DC), Urinary Tract Infection in Women (DC), Depression (DC) Referrals: Evens Gudino MD [Family Provider] - Bunny Pierre MD [Staff Provider] -
--- NOTE | 2017-12-03 08:55 | PQF GENQUE ---
This form is a permanent part of the medical record Dr. Kali Magana: (1) Patient with urine culture positive escherichia coli treated with macrobid 100 mg. in emergency room and discharged with rocephin. Could you please clarify if UTI was ruled in or out. (2) Was the etiology of shortness of breath determined. Clarification of your documentation is requested to better reflect the severity of illness and intensity of treatment of your patient. Indicators present [] Specify: [] [] Specify: [] [] Specify: [] [] Specify: [] Location in the medical record that reflects the above clinical findings: [] Treatment Provided: [] PHYSICIAN'S RESPONSE Based on your medical judgment of the clinical indicators outlined above please clarify the following: [] Practitioner response [] If unable to determine, please check the box, sign and date. Present On Admission (POA) Indicator: [] Present at the time of admission [] Not present at the time of admission [] Clinically Undetermined In responding to this query, please exercise your independent professional judgment. The fact that a question is asked does not imply that any particular answer is desired or expected. Thank you for your clarification on this documentation. If you have any questions please call:[ ] * Thank you, * ARGENTINA REN [[phone] soap maker OSIRIS
== END 2017-12-02 15:45 | DRG 690 ==
LOC: H.ER 12:59 → H.ERHOLD 17:33 → H.MEDSURG1 21:08
PROVIDERS: ADMIT Family Medicine; ATTEND Family Medicine
DX: N39.0 Urinary tract infection, site not specified (principal); F33.3 Major depressive disorder, recurrent, severe with psychotic symptoms; J90 Pleural effusion, not elsewhere classified; R45.851 Suicidal ideations; F41.9 Anxiety disorder, unspecified; I10 Essential (primary) hypertension; Z79.82 Long term (current) use of aspirin; F17.210 Nicotine dependence, cigarettes, uncomplicated; Z91.14 Patient's other noncompliance with medication regimen; Z91.5 Personal history of self-harm; Z98.84 Bariatric surgery status; F12.90 Cannabis use, unspecified, uncomplicated; F45.9 Somatoform disorder, unspecified; G43.909 Migraine, unspecified, not intractable, without status migrainosus; J40 Bronchitis, not specified as acute or chronic; K29.70 Gastritis, unspecified, without bleeding; M19.90 Unspecified osteoarthritis, unspecified site; Z79.899 Other long term (current) drug therapy; R09.89 Other specified symptoms and signs involving the circulatory and respiratory systems; F12.10 Cannabis abuse, uncomplicated

== ENCOUNTER 2017-12-02 16:13 | Inpatient (IN) | payer MEDICARE, MEDICAID ==
[2017-12-02 16:40] VITALS: BMI 57.4
[2017-12-02] MEDS ORDERED: Magnesium Hydroxide Susp 30 ml UD PO PRN (16:59)
[2017-12-02] MEDS ORDERED: DiphenhydrAMINE 50 mg/ml Inj IM PRN (16:59)
[2017-12-02] MEDS ORDERED: Alum-Mag Hydrox-Simethicone Susp (30 mL) PO PRN (16:59)
--- NOTE | 2017-12-02 19:42 | PCM.BM ---
<Kain Garner - Last Filed: 12/02/17 19:41> Treatment Plan Problems - Problems identified on initial assessmt Hopelessness/Helplessness Date Initiated: 12/02/17 Time Initiated: 16:00 Assessment reference: NA Treatment assets and liabiliti Patient Assests: cooperative, insightful, ADL independent, good support system Patient Liabilities: physical pain, substance abuse, medical problems - Milieu Protocol Maintain good personal hygiene: every shift Encourage regular showers, every shift Remind patient to perform daily oral care, every shift Assist patient to perform ADL's Maintain personal safety: every shift Educate patient to report safety concerns to staff, every shift Monitor environment for contraband/sharps Medication safety: Monitor for expected outcome, potential side effects: every shift, Assess barriers to learning: every shift, Assess readiness for medication education: every shift <Erickson Allison J - Last Filed: 12/05/17 07:35> Family Contact Family involvement: Family/SO is involved Family contact: Patient declines to allow family contact at present Family contact name: Pt denied. - Goals for Treatment Patient goals for treatment: Pt reported that she would like to return back to her "normal" self. Pt reported that she was using benzodiazepines to cope with her anxiety and depression and felt that she lost herself. Discharge/Continuing Care - Education Needs Education Needs: Patient Medication, Patient Diagnosis/Disease Process, Patient Coping Skills, Patient Community resources, Patient Aftercare Safety Plan - Discharge Discharge Criteria: Tolerates medication w/o severe side effects, Free of paranoid thoughts, Free of agitation, Normal sleep pattern, Ability to care for self, Reduction of target symptoms Discharge to:: Home, With Family - Treatment Team Participation Patient/Family/SO Statement: 12/05/17 07:39 Pt reported during treatment team that she was feeling better, except for pain in her back. Pt reported that she is finally sleeping well for the first time in a long time. Dr. Fiore discussed paranoia with the pt and pt appeared to deny ever experiencing bouts of paranoia. Pt spoke about understanding the damage the chronic, habitual Xanax use had done to her behavior and affect, despite taking them as prescribed by her doctor. Pt spoke about her impending homelessness in the next month and spoke about cumulative loss and fractured relationships with her family members. Discussed with Family/SO: No Was Patient/Family/SO present at Treatment Team Meeting: Yes <Vivi Fiore - Last Filed: 12/05/17 15:20> - Diagnosis (1) Anxiety Status: Acute Interventions: psychotherapy, pharmacotherapy 12/05/17 15:20
[2017-12-02] MEDS: Acetaminophen-Codeine 300/30 mg Tab PO PRN (21:38)
[2017-12-03 06:23] LABS: BASO # 0.1 K/uL (0.0-0.2); BASO % 0.8 % (0.0-2.0); EOS # 0.1 K/uL (0.0-0.7); EOS % 0.8 % (0.0-4.0); HEMOGLOBIN 9.7 g/dL (12.0-16.0); LYMPH # 2.3 K/uL (1.0-4.3); LYMPH % 26.3 % (20.0-40.0); MEAN CELL VOLUME 68.7 fl (81.0-99.0); MEAN CORPUSCULAR HEMOGLOBIN 20.6 pg (27.0-31.0); MEAN CORPUSCULAR HGB CONC 30.1 g/dL (33.0-37.0); MEAN PLATELET VOLUME 8.6 fl (7.2-11.7); MONO # 0.7 K/uL (0.0-0.8); MONO % 8.1 % (0.0-10.0); NEUT # 5.5 K/uL (1.8-7.0); NRBC % 0.2 % (0.0-0.0); RBC 4.71 Mil/uL (3.80-5.20); RED CELL DISTRIBUTION WIDTH 19.8 % (11.5-14.5); WHITE BLOOD COUNT 8.7 K/uL (4.8-10.8)
[2017-12-03 06:31] LABS: ALB/GLOB RATIO 1.1 (1.0-2.1); ALBUMIN 3.6 g/dL (3.5-5.0); ALT/SGPT 22 U/L (9-52); AST/SGOT 21 U/L (14-36); BLOOD UREA NITROGEN 10 mg/dl (7-17); CALCIUM 8.8 mg/dL (8.4-10.2); GFR AFRICAN-AMERICAN > 60; GFR NON-AFRICAN AMERICAN > 60; HDL CHOLESTEROL 28 MG/DL (30-70)
[2017-12-03 06:44] LABS: LDL CHOLESTEROL 48 mg/dL (0-129)
[2017-12-03 07:24] LABS: T4 7.79 ug/dl (5.5-11.0)
[2017-12-03] MEDS: Pantoprazole 40 mg EC Tab PO SCH (09:03)
[2017-12-03] MEDS: Enoxaparin 60 mg Syringe SC SCH (09:07)
--- NOTE | 2017-12-03 11:38 | CP.PCM.CON ---
History of Present Illness - History of Present Illness History of Present Illness: 47 y/o woman w/ pmh of depression, HTN, HLD is admitted to voluntary inpatient psychiatry for depression w/ suicidal ideation. Patient was discharged from Med /Surg for pulmonary congestion and which has resolved. Patient initially came to ED for nightmare and suicidal ideation. Patient denies plan and was previously treated for depression as outpatient but stopped taking medication. Patient denies headaches, chest pain, SOB, abdominal pain, nausea, vomiting, diarrhea, dysuria, or fever. PMD: Dr. Gudino Psych: Dr. Gonzalez PMH: depression, HTN, HLD meds: see med list allergies: ibuprofen PSH: Fam: denies SOC: smokes 10 cigarettes/day, reports opioid and marijuana use, denies alcohol ROS: 12 points assessed and negative unless otherwise reported in HPI Review of Systems - Review of Systems All systems: reviewed and no additional remarkable complaints except - Constitutional Constitutional: absent: Chills, Fever - EENT Eyes: absent: Change in Vision - Cardiovascular Cardiovascular: absent: Chest Pain - Respiratory Respiratory: absent: Dyspnea - Gastrointestinal Gastrointestinal: absent: Abdominal Pain, Diarrhea, Nausea, Vomiting - Genitourinary Genitourinary: absent: Dysuria - Integumentary Integumentary: absent: Rash Past Patient History - Infectious Disease Hx of Infectious Diseases: None - Past Medical History & Family History Past Medical History?: Yes - Past Social History Smoking Status: Light Smoker < 10 Cigarettes Daily - CARDIAC Hx Cardiac Disorders: Yes Hx Hypertension: Yes - PULMONARY Hx Respiratory Disorders: Yes Hx Bronchitis: Yes - NEUROLOGICAL Hx Neurological Disorder: Yes Hx Migraine: Yes - HEENT Hx HEENT Problems: No - RENAL Hx Chronic Kidney Disease: No - HEMATOLOGICAL/ONCOLOGICAL Hx Cancer: No Hx Human Immunodeficiency Virus (HIV): No - INTEGUMENTARY Hx Dermatological Problems: No - MUSCULOSKELETAL/RHEUMATOLOGICAL Hx Musculoskeletal Disorders: Yes Hx Arthritis: Yes Hx Falls: Yes - GASTROINTESTINAL Hx Gastrointestinal Disorders: Yes Hx Gastritis: Yes - GENITOURINARY/GYNECOLOGICAL Hx Sexually Transmitted Disorders: No - PSYCHIATRIC Hx Anxiety: Yes Hx Bipolar Disorder: Yes Hx Depression: Yes Hx Substance Use: Yes - SURGICAL HISTORY Hx Surgeries: Yes Hx Section: Yes Other/Comment: foot surg; stomach bypass - ANESTHESIA Hx Anesthesia: Yes Hx Anesthesia Reactions: No Hx Malignant Hyperthermia: No Meds Allergies/Adverse Reactions: Allergies Allergy/AdvReac Type Severity Reaction Status Date / Time ibuprofen AdvReac Unknown ANAPHYLAXIS Verified 11/30/17 14:34 - Medications Medications: Current Medications Acetaminophen/Codeine Phosphate (Tylenol/Codeine 300 Mg/30 Mg) 1 tab PO QID PRN PRN Reason: pain level 5-10 Last Admin: 12/02/17 21:38 Dose: 1 tab Al Hydrox/Mg Hydrox/Simethicone (Maalox Plus 30 Ml) 30 ml PO Q4 PRN PRN Reason: Dyspepsia Atorvastatin Calcium (Lipitor) 40 mg PO HS [facility] Last Admin: 12/02/17 21:15 Dose: 40 mg Diphenhydramine HCl (Benadryl) 50 mg IM Q6 PRN PRN Reason: Extrapyramidal S/S Unable PO Diphenhydramine HCl (Benadryl) 50 mg PO Q6 PRN PRN Reason: Extrapyramidal Symptoms Duloxetine HCl (Cymbalta) 90 mg PO HS [facility] Last Admin: 12/02/17 21:15 Dose: 90 mg Enalapril Maleate (Vasotec) 10 mg PO DAILY [facility] Last Admin: 12/03/17 09:05 Dose: 10 mg Enoxaparin Sodium (Lovenox) 50 mg SC DAILY [facility] PRN Reason: Protocol Last Admin: 12/03/17 09:07 Dose: 50 mg Furosemide (Lasix) 40 mg PO DAILY [facility] Last Admin: 12/03/17 09:04 Dose: 40 mg Haloperidol (Haldol) 5 mg PO Q4 PRN PRN Reason: Agitation Haloperidol Lactate (Haldol) 5 mg IM Q4 PRN PRN Reason: Agitation, Unable to Take PO Hydrochlorothiazide (Microzide) 12.5 mg PO DAILY [facility] Last Admin: 12/03/17 09:05 Dose: 12.5 mg Lorazepam (Ativan) 2 mg IM Q4 PRN PRN Reason: Anxiety/Agitation,Unable PO Lorazepam (Ativan) 2 mg PO Q4 PRN PRN Reason: Anxiety/Agitation Magnesium Hydroxide (Milk Of Magnesia) 30 ml PO HS PRN PRN Reason: Constipation Nicotine (Nicoderm Cq) 1 patch TD DAILY [facility] Last Admin: 12/03/17 09:09 Dose: Not Given Nitrofurantoin Macrocrystals (Macrobid) 100 mg PO Q12 [facility] PRN Reason: Protocol Stop: 12/12/17 09:00 Last Admin: 12/03/17 09:03 Dose: 100 mg Olanzapine (Zyprexa) 5 mg PO HS [facility] Last Admin: 12/02/17 21:15 Dose: 5 mg Pantoprazole Sodium (Protonix Ec Tab) 40 mg PO DAILY [facility] Last Admin: 12/03/17 09:03 Dose: 40 mg Physical Exam - Constitutional Appears: Non-toxic, No Acute Distress - Head Exam Head Exam: ATRAUMATIC, NORMAL INSPECTION, NORMOCEPHALIC - Eye Exam Eye Exam: Normal appearance - ENT Exam ENT Exam: Mucous Membranes Moist - Neck Exam Neck exam: Positive for: Full Rom. Negative for: Tenderness - Respiratory Exam Respiratory Exam: Clear to Auscultation Bilateral. absent: Accessory Muscle Use , Decreased Breath Sounds, Rales, Rhonchi, Wheezes, Respiratory Distress - Cardiovascular Exam Cardiovascular Exam: REGULAR RHYTHM, RRR. absent: Tachycardia - GI/Abdominal Exam GI & Abdominal Exam: Distended (obese abdomen), Normal Bowel Sounds, Soft. absent: Tenderness - Extremities Exam Extremities exam: Negative for: calf tenderness - Neurological Exam Neurological exam: Alert, Oriented x3 - Skin Skin Exam: Dry, Intact, Normal Color, Warm Results - Vital Signs Recent Vital Signs: Last Vital Signs Temp 97.7 F 12/03/17 09:33 Pulse 105 H 12/03/17 09:33 Resp 19 12/03/17 09:33 BP 134/95 H 12/03/17 09:33 Pulse Ox - Labs Result Diagrams: 12/03/17 05:40 12/03/17 05:40 Labs: Laboratory Results - last 24 hr 12/03/17 12/03/17 05:40 05:40 WBC 8.7 RBC 4.71 Hgb 9.7 L Hct 32.3 L MCV 68.7 L MCH 20.6 L MCHC 30.1 L RDW 19.8 H Plt Count 285 MPV 8.6 Neut % (Auto) 64.0 Lymph % (Auto) 26.3 Caroline % (Auto) 8.1 Eos % (Auto) 0.8 Baso % (Auto) 0.8 Neut # (Auto) 5.5 Lymph # (Auto) 2.3 Caroline # (Auto) 0.7 Eos # (Auto) 0.1 Baso # (Auto) 0.1 Sodium 140 Potassium 4.1 Chloride 101 Carbon Dioxide 31 H Anion Gap 12 BUN 10 Creatinine 0.6 L Est GFR ( Amer) > 60 Est GFR (Non-Af Amer) > 60 Random Glucose 108 H Calcium 8.8 Total Bilirubin 0.6 AST 21 ALT 22 Alkaline Phosphatase 74 Total Protein 6.9 Albumin 3.6 Globulin 3.3 Albumin/Globulin Ratio 1.1 Triglycerides 150 H Cholesterol 124 LDL Cholesterol Direct 48 HDL Cholesterol 28 L Thyroxine (T4) 7.79 TSH 3rd Generation 1.82 Assessment & Plan (1) Suicidal ideation Status: Acute (2) Depression Status: Acute (3) Morbid obesity Status: Chronic (4) HTN (hypertension) Status: Chronic (5) HLD (hyperlipidemia) Status: Chronic - Assessment and Plan (Free Text) Plan: c/w present management as per psychiatry team afebrile, non-tachycardic, normotensive monitor for acute changes
[2017-12-03] MEDS ORDERED: Risperidone M tab 1 MG PO STA (11:59)
[2017-12-03] MEDS: Acetaminophen-Codeine 300/30 mg Tab PO PRN ×2 (12:46→21:46)
--- NOTE | 2017-12-03 14:07 | PCM.PSYCH ---
Initial Psychiatric Evaluation - Initial Psychiatric Evaluation Type of Admission: Voluntary Legal Status: Capacity Chief Complaint (in patient's own words): I am very depressed Patient's Reaction to Hospitalization: pt requested help History of Present Illness and Precipitating Events: pt is 47ys old female with previous psychiatric diagnosis of anxiety and depression,currently in treatment with Dr Gonzalez , partial compliance with medications pt reported she lost her grand mother her 22ys old son and her within a very short period of time in past two years , which made her increasingly depressed, she has two young children and due to financial difficulties, on day of evaluation she came to know that she is facing eviction in December,pt became more depressed and anxious started having suicidal thoughts with plan to overdose on her medications , pt was brought by her daughter to ER admitted initially to medical floor for treatment of pleural effusion pt on the unit reported feeling increasingly anxious , depressed, hopeless and helpless in reference to her current financial situation, continues to have passive suicidal ideation without active plan on the unit , pt reported delusions of persecution and having paranoid delusions towards surrounding people, urine toxicology is positive for cannabis Current Medications: Active Medications Generic Name Dose Route Start Last Admin Trade Name Freq PRN Reason Stop Dose Admin Acetaminophen/Codeine Phosphate 1 tab 12/02/17 21:20 12/03/17 12:46 Tylenol/Codeine 300 Mg/30 Mg PO 1 tab QID PRN Administration pain level 5-10 Al Hydrox/Mg Hydrox/Simethicone 30 ml 12/02/17 16:59 Maalox Plus 30 Ml PO Q4 PRN Dyspepsia Atorvastatin Calcium 40 mg 12/02/17 22:00 12/02/17 21:15 Lipitor PO 40 mg HS JOANNE Administration Diphenhydramine HCl 50 mg 12/02/17 16:59 Benadryl IM Q6 PRN Extrapyramidal S/S Unable PO Diphenhydramine HCl 50 mg 12/02/17 16:59 Benadryl PO Q6 PRN Extrapyramidal Symptoms Duloxetine HCl 90 mg 12/02/17 22:00 12/02/17 21:15 Cymbalta PO 90 mg HS JOANNE Administration Enalapril Maleate 10 mg 12/03/17 09:00 12/03/17 09:05 Vasotec PO 10 mg DAILY JOANNE Administration Enoxaparin Sodium 50 mg 12/03/17 09:00 12/03/17 09:07 Lovenox SC 50 mg DAILY JOANNE Administration Protocol Furosemide 40 mg 12/03/17 09:00 12/03/17 09:04 Lasix PO 40 mg DAILY JOANNE Administration Gabapentin 100 mg 12/03/17 13:00 12/03/17 12:46 Neurontin PO 100 mg TID JOANNE Administration Haloperidol 5 mg 12/02/17 16:59 Haldol PO Q4 PRN Agitation Haloperidol Lactate 5 mg 12/02/17 16:59 Haldol IM Q4 PRN Agitation, Unable to Take PO Hydrochlorothiazide 12.5 mg 12/03/17 09:00 12/03/17 09:05 Microzide PO 12.5 mg DAILY JOANNE Administration Lorazepam 2 mg 12/02/17 16:59 Ativan IM Q4 PRN Anxiety/Agitation,Unable PO Lorazepam 1 mg 12/03/17 11:58 Ativan PO TID PRN Anxiety Magnesium Hydroxide 30 ml 12/02/17 16:59 Milk Of Magnesia PO HS PRN Constipation Nicotine 1 patch 12/03/17 09:00 12/03/17 09:09 Nicoderm Cq TD Not Given DAILY JOANNE Nitrofurantoin Macrocrystals 100 mg 12/02/17 21:00 12/03/17 09:03 Macrobid PO 12/12/17 09:00 100 mg Q12 JOANNE Administration Protocol Pantoprazole Sodium 40 mg 12/03/17 09:00 12/03/17 09:03 Protonix Ec Tab PO 40 mg DAILY JOANNE Administration Past Psychiatric History - Past Psychiatric History Explanation of prior treatment: pt has history of admission to [facility] in 2005 after suicidal attempt by overdose pt under care of Dr Gonzalez with partial compliance with medication History of ETOH/Drug Use: history of cannabis and cocaine use Pertinent Medical Hx (Current Medical&Sleep Prob, Allergies): Allergies Allergy/AdvReac Type Severity Reaction Status Date / Time ibuprofen AdvReac Unknown ANAPHYLAXIS Verified 11/30/17 14:34 Alprazolam [Xanax] 0.5 mg PO HS PRN #0 tab 06/14/16 Escitalopram [Lexapro] 20 mg PO DAILY #0 tab 06/14/16 Pantoprazole [Protonix EC Tab] 40 mg PO DAILY #0 ect 06/14/16 Acetaminophen/Codeine [Tylenol/Codeine 300 MG/30 MG] 1 ea PO Q8 PRN #0 tab 07/27 Aspirin [Ecotrin] 81 mg PO DAILY tabec 07/27/16 DULoxetine [Cymbalta] 60 mg PO HS ecc 07/27/16 Enalapril Maleate [Vasotec] 10 mg PO DAILY tab 07/27/16 Rosuvastatin Calcium [Crestor] 20 mg PO HS tab 07/27/16 hydroCHLOROthiazide [Microzide] 12.5 mg PO DAILY cap 07/27/16 Nitrofurantoin Macrocrystals [Macrobid] 100 mg PO BID #20 cap 12/02/17 Mental Status Examination - Personal Presentation Personal Presentation: Looks older than stated age Additional comments: obese - Affect Affect: Constricted, Depressed - Motor Activity Motor Activity: Psychomotor Agitation - Reliability in Providing Information Reliability in Providing Information: Fair - Speech Speech: Relevant - Mood Mood: Depressed, Anxious - Formal Thought Process Formal Thought Process: Paranoia, Circumstantial - Hallucinations/Delusions Additional comments: pt denied perceptual disturbances, non elicited - Obsessions/Compulsions Obsessions: No Compulsions: No - Cognitive Functions Orientation: Person Sensorium: Alert Attention/Concentration: Attentive Judgement: Imparied, as evidence by: Poor judgement, Imparied, as evidence by: Lack of insight into illness - Risk Risk: Suicidal, Diminished functioning - Limitations Additional comments: financial difficulties DSM 5 DX - DSM 5 DSM 5 Diagnosis: major depression recurrent severe with psychotic features generalized anxiety disorder cannabis use - Recommended/Plan of Treatment Treatment Recommendations and Plan of Treatment: continue cymbalta 90 mg start neurontin 100mg tid for anxiety trazodone 100mg qhs for sleep risperidone 0.5mg qhs for paranoid delusions an increase gradually CBT group and supportive therapy
[2017-12-03] MEDS ORDERED: Risperidone M tab 0.5MG PO SCH (22:00)
[2017-12-04] MEDS: Acetaminophen-Codeine 300/30 mg Tab PO PRN ×2 (06:13→13:03)
[2017-12-04] MEDS: Pantoprazole 40 mg EC Tab PO SCH (08:42)
[2017-12-04 10:21] LABS: HEMOGLOBIN 10.1 g/dL (12.0-16.0); MEAN CELL VOLUME 69.3 fl (81.0-99.0); MEAN CORPUSCULAR HEMOGLOBIN 20.2 pg (27.0-31.0); MEAN CORPUSCULAR HGB CONC 29.2 g/dL (33.0-37.0); RBC 4.99 Mil/uL (3.80-5.20); RED CELL DISTRIBUTION WIDTH 19.5 % (11.5-14.5); WHITE BLOOD COUNT 11.5 K/uL (4.8-10.8)
[2017-12-04 10:44] LABS: ALB/GLOB RATIO 1.1 (1.0-2.1); ALBUMIN 4.2 g/dL (3.5-5.0); ALT/SGPT 21 U/L (9-52); AST/SGOT 28 U/L (14-36); BLOOD UREA NITROGEN 13 mg/dl (7-17); CALCIUM 9.1 mg/dL (8.4-10.2); GFR AFRICAN-AMERICAN > 60; GFR NON-AFRICAN AMERICAN > 60
[2017-12-04] MEDS: Enoxaparin 60 mg Syringe SC SCH (10:47)
--- NOTE | 2017-12-04 11:47 | CP.PCM.PN ---
Subjective - Date & Time of Evaluation Date of Evaluation: 12/04/17 Time of Evaluation: 10:00 - Subjective Subjective: Patient seen and examined this morning at bedside w/ Dr. Magana. There are no acute events overnight, NAD. The patient is feeling better and improving. Patient denies any hallucinations/delusions. Patient denies any homicidal/ suicidal ideation. The patient denies headaches, chest pain, SOB, abdominal pain, nausea, vomiting, diarrhea, dysuria, or fever. Objective - Vital Signs/Intake and Output Vital Signs (last 24 hours): Temp Pulse Resp BP Pulse Ox 97.7 F 100 H 19 136/95 H 12/04/17 08:41 12/04/17 08:41 12/04/17 08:41 12/04/17 08:43 - Medications Medications: Current Medications Acetaminophen/Codeine Phosphate (Tylenol/Codeine 300 Mg/30 Mg) 1 tab PO QID PRN PRN Reason: pain level 5-10 Last Admin: 12/04/17 06:13 Dose: 1 tab Al Hydrox/Mg Hydrox/Simethicone (Maalox Plus 30 Ml) 30 ml PO Q4 PRN PRN Reason: Dyspepsia Atorvastatin Calcium (Lipitor) 40 mg PO HS [facility] Last Admin: 12/03/17 21:47 Dose: 40 mg Diphenhydramine HCl (Benadryl) 50 mg IM Q6 PRN PRN Reason: Extrapyramidal S/S Unable PO Diphenhydramine HCl (Benadryl) 50 mg PO Q6 PRN PRN Reason: Extrapyramidal Symptoms Duloxetine HCl (Cymbalta) 90 mg PO [facility] Last Admin: 12/03/17 21:46 Dose: 90 mg Enalapril Maleate (Vasotec) 10 mg PO DAILY [facility] Last Admin: 12/04/17 10:50 Dose: 10 mg Enoxaparin Sodium (Lovenox) 50 mg SC DAILY [facility] PRN Reason: Protocol Last Admin: 12/04/17 10:47 Dose: 50 mg Furosemide (Lasix) 40 mg PO DAILY [facility] Last Admin: 12/04/17 08:43 Dose: 40 mg Gabapentin (Neurontin) 100 mg PO TID [facility] Last Admin: 12/04/17 08:42 Dose: 100 mg Haloperidol (Haldol) 5 mg PO Q4 PRN PRN Reason: Agitation Haloperidol Lactate (Haldol) 5 mg IM Q4 PRN PRN Reason: Agitation, Unable to Take PO Hydrochlorothiazide (Microzide) 12.5 mg PO DAILY [facility] Last Admin: 12/04/17 08:42 Dose: 12.5 mg Lorazepam (Ativan) 2 mg IM Q4 PRN PRN Reason: Anxiety/Agitation,Unable PO Lorazepam (Ativan) 1 mg PO TID PRN PRN Reason: Anxiety Magnesium Hydroxide (Milk Of Magnesia) 30 ml PO HS PRN PRN Reason: Constipation Nicotine (Nicoderm Cq) 1 patch TD DAILY [facility] Last Admin: 12/04/17 08:47 Dose: 1 patch Nitrofurantoin Macrocrystals (Macrobid) 100 mg PO Q12 JOANNE PRN Reason: Protocol Stop: 12/12/17 09:00 Last Admin: 12/04/17 08:47 Dose: 100 mg Pantoprazole Sodium (Protonix Ec Tab) 40 mg PO DAILY [facility] Last Admin: 12/04/17 08:42 Dose: 40 mg Potassium Chloride (K-Dur 20 Meq Er Tab) 20 meq PO DAILY [facility] Potassium Chloride (K-Dur 20 Meq Er Tab) 20 meq PO DAILY [facility] Risperidone (Risperdal M-Tab) 0.5 mg PO HS [facility] Last Admin: 12/03/17 21:46 Dose: 0.5 mg Trazodone HCl (Desyrel) 100 mg PO HS [facility] Last Admin: 12/03/17 21:47 Dose: 100 mg - Labs Labs: 12/04/17 10:10 12/04/17 10:10 - Constitutional Appears: Non-toxic, No Acute Distress - Head Exam Head Exam: ATRAUMATIC, NORMAL INSPECTION, NORMOCEPHALIC - Eye Exam Eye Exam: Normal appearance - ENT Exam ENT Exam: Mucous Membranes Moist - Neck Exam Neck Exam: Full ROM. absent: Tenderness - Respiratory Exam Respiratory Exam: Clear to Ausculation Bilateral. absent: Accessory Muscle Use , Decreased Breath Sounds, Rales, Rhonchi, Wheezes, Respiratory Distress - Cardiovascular Exam Cardiovascular Exam: REGULAR RHYTHM, RRR. absent: Tachycardia - Extremities Exam Extremities Exam: absent: Calf Tenderness - Neurological Exam Neurological Exam: Alert, Awake, Oriented x3. absent: Normal Gait (uses cane assist device) - Skin Skin Exam: Dry, Intact, Normal Color, Warm Assessment and Plan (1) Suicidal ideation Status: Acute (2) Depression Status: Acute (3) Morbid obesity Status: Chronic (4) HTN (hypertension) Status: Chronic (5) HLD (hyperlipidemia) Status: Chronic - Assessment and Plan (Free Text) Plan: c/w present management as per psychiatry team afebrile, non-tachycardic, normotensive medically stable from medicine standpoint c/w lasix 40 mg PO daily c/w KCl 20 meq daily prophylactic measures: DVT 50 mg SC daily monitor for acute changes
--- NOTE | 2017-12-04 15:24 | PCM.PYCHPN ---
Psychiatric Progress Note - Psychiatric Progress Note Patient seen today, length of contact: PT EVALUATED DISCUSSED WITH TEAM CHART REVIEWED Patient Chief Complaint: I went through a lot the past few years Problems Identified/Issues Discussed: pt evaluated with treatment team, continues to be depressed, tearful when talking about her recent losses and the current financial difficulties she is facing with her children, feeling hopeless and helpless as she has no social support and worried about being homeless with two young children pt reported feeling less paranoid., discussed increasing risperidone and also increasing neurontin for anxiety , advising the patient about the negative effect of benzodiazepines on her current mental status no reported side effects of medications, denied active suicidal ideation on the unit Medical Problems: pt has history of admission to [facility] in 2005 after suicidal attempt by overdose pt under care of Dr Gonzalez with partial compliance with medication DSM 5 Symptoms Update: major depression recurrent severe with psychotic features cannabis use disorder Medication Change: Yes (increase neurontin) Medical Record Reviewed: Yes Mental Status Examination - Cognitive Function Orientation: Person - Mood Mood: Depressed, Anxious - Affect Affect: Constricted, Depressed - Formal Thought Process Formal Thought Process: Paranoia, Circumstantial Goal/Treatment Plan - Goal/Treatment Plan Progress Toward Problem(s) and Goals/Treatment Plan: cymbalta 90 mg increase neurontin 300mg tid for anxiety trazodone 100mg qhs for sleep risperidone 1mg qhs for paranoid delusions an increase gradually CBT group and supportive therapy
[2017-12-04] MEDS: Potassium Chloride 20 mEq ER Tab PO SCH (17:46)
[2017-12-04] MEDS: Risperidone M tab 1 MG PO SCH (22:30)
[2017-12-05] MEDS: Potassium Chloride 20 mEq ER Tab PO SCH ×2 (09:00→09:21)
[2017-12-05] MEDS: Pantoprazole 40 mg EC Tab PO SCH (09:21)
[2017-12-05] MEDS: Enoxaparin 60 mg Syringe SC SCH (09:22)
--- NOTE | 2017-12-05 12:39 | PCM.PYCHPN ---
Psychiatric Progress Note - Psychiatric Progress Note Patient seen today, length of contact: PT EVALUATED DISCUSSED WITH TEAM CHART REVIEWED Patient Chief Complaint: I am reflecting on my problems Problems Identified/Issues Discussed: pt evaluated reported feeling anxious due to poor sleep last night and requesting benzodiazepines, psychoeducation provided advised pt about the addictive nature of benzodiazepines, CBT provided , pt compliant with treatment, reported thought process more clear with risperidone, denied any current paranoid delusions pt compliant with treatment attending groups, denied any current suicidal or homicidal ideation Medical Problems: pt has history of admission [place] [facility] [place] after suicidal attempt by overdose pt under care of Dr Gonzalez with partial compliance with medication DSM 5 Symptoms Update: major depression recurrent severe generalized anxiety disorder cannabis use disorder Medication Change: No Medical Record Reviewed: Yes Mental Status Examination - Cognitive Function Orientation: Person Attention: WNL Concentration: WNL Association: WNL Fund of Knowledge: WNL Decription of patient's judgement and insights: partial insight , poor judgment - Mood Mood: Depressed, Anxious - Affect Affect: Constricted, Depressed - Speech Speech: Appropriate - Formal Thought Process Formal Thought Process: Paranoia, Circumstantial - Suicidal Ideation Suicidal Ideation: No - Homicidal Ideation Homicidal Ideation: No Goal/Treatment Plan - Goal/Treatment Plan Need for Continued Stay: Remain at risks for inpatient hospitalization, Severe depression anxiety, Discharge may exacerbated symptoms Progress Toward Problem(s) and Goals/Treatment Plan: cymbalta 90 mg neurontin 300mg tid for anxiety increase trazodone 200mg qhs for sleep risperidone 1mg qhs for paranoid delusions CBT group and supportive therapy
[2017-12-05] MEDS: Risperidone M tab 1 MG PO SCH (21:23)
[2017-12-06] MEDS: Pantoprazole 40 mg EC Tab PO SCH (08:35)
[2017-12-06] MEDS: Potassium Chloride 20 mEq ER Tab PO SCH (08:35)
[2017-12-06] MEDS: Enoxaparin 60 mg Syringe SC SCH (08:36)
[2017-12-06 08:39] VITALS: BP 136/78
[2017-12-06 11:48] VITALS: PULSE 102; TEMP 97.2
--- NOTE | 2017-12-06 13:49 | PCM.PYCHDC ---
Mental Status Examination - Mental Status Examination Orientation: Person, Place, Situation Memory: Intact Mood: Neutral Affect: Broad Speech: Appropriate Attention: WNL Concentration: WNL Association: WNL Fund of Knowledge: WNL Formal Thought Process: No Impairment Description of patient's judgement and insight: partial insight , poor judgment Psychotic Thoughts and Behaviors: pt on discharge denied psychotic symptoms, non elicited Suicidal Ideation: No Current Homicidal Ideation?: No Discharge Summary - Discharge Note Reason for Hospitalization: pt is 47ys old female with previous psychiatric diagnosis of anxiety and depression,currently in treatment with Dr Gonzalez , partial compliance with medications pt reported she lost her grand mother her 22ys old son and her within a very short period of time in past two years , which made her increasingly depressed, she has two young children and due to financial difficulties, on day of evaluation she came to know that she is facing eviction in December,pt became more depressed and anxious started having suicidal thoughts with plan to overdose on her medications , pt was brought by her daughter to ER admitted initially to medical floor for treatment of pleural effusion pt on the unit reported feeling increasingly anxious , depressed, hopeless and helpless in reference to her current financial situation, continues to have passive suicidal ideation without active plan on the unit , pt reported delusions of persecution and having paranoid delusions towards surrounding people, urine toxicology is positive for cannabis Consultations:: List each consultation separately and include: 1. Reason for request. 2. Findings. 3. Follow-up Summary of Hospital Course include:: 1. Description of specific treatment plan utilized for patients during their course of treatmen. 2. Summarize the time- course for resolution of acute symptoms and/or regressed behaviors. 3. Describe issues identified and worked on during hospitalization. 4. Describe medication utilized. 5. Describe medical problems identified and treated. 6. Reassessment of suicide risk Summary of Hospital Course: pt on admission was started on neurontin 300mg tid for anxiety pt was continued on cymbalta 90mg daily risperidone was started and increased to 1mg qhs for paranoid delusions, Motivational therapy provided in reference to cannabis use pt was compliant with treatment, attended groups, no reported side effects of medications on discharge mental status was stable , pt denied any current suicidal or homicidal ideation denied perceptual disturbances Follow up arranged by social worker health services at [facility] program - Diagnosis (1) Anxiety Current Visit: No Status: Acute - Final Diagnosis (DSM 5) Condition upon Discharge: GOOD DSM 5: major depression recurrent severe with psychotic features generalized anxiety disorder cannabis use disorder Disposition: HOME/ ROUTINE Follow-up Treatment Plan: cymbalta 90 mg neurontin 300mg tid for anxiety increase trazodone 200mg qhs for sleep risperidone 1mg qhs for paranoid delusions CBT group and supportive therapy Prescriptions/Medication Reconciliation: DULoxetine [Cymbalta] 90 mg PO HS 30 Days #90 ecc Gabapentin [Neurontin] 300 mg PO TID 30 Days #90 cap Nicotine 21 mg/24 hr [Nicoderm Cq] 1 patch TD DAILY 30 Days #30 patch Risperidone [Risperdal M-TAB] 1 mg PO HS 30 Days #30 odt traZODone [Desyrel] 100 mg PO HS 30 Days #30 tab - Smoking Cessation Smoking Cessation Medication prescribed: Yes - Antipsychotic Medications Pt discharged on 2 or more routine antipsychotic medications: No
[2017-12-06 13:53] VITALS: RESP 20
== END 2017-12-06 14:28 | disposition home or self-care (01) | DRG 885 ==
LOC: H.PSYCH 16:45
PROVIDERS: ADMIT Psychiatry & Neurology Psychiatry; ATTEND Psychiatry & Neurology Psychiatry
PROC: GZ51ZZZ Individual Psychotherapy, Behavioral (ICD-10-PCS; 2017-12-02)
PROC: GZHZZZZ Group Psychotherapy (ICD-10-PCS; principal; 2017-12-04)
DX: F33.3 Major depressive disorder, recurrent, severe with psychotic symptoms (principal); R45.851 Suicidal ideations; Z68.43 Body mass index [BMI] 50.0-59.9, adult; F41.1 Generalized anxiety disorder; I10 Essential (primary) hypertension; Z91.5 Personal history of self-harm; F14.90 Cocaine use, unspecified, uncomplicated; G43.909 Migraine, unspecified, not intractable, without status migrainosus; J40 Bronchitis, not specified as acute or chronic; K29.70 Gastritis, unspecified, without bleeding; M19.90 Unspecified osteoarthritis, unspecified site; E66.01 Morbid (severe) obesity due to excess calories; E78.5 Hyperlipidemia, unspecified; F12.90 Cannabis use, unspecified, uncomplicated; F17.210 Nicotine dependence, cigarettes, uncomplicated; F31.9 Bipolar disorder, unspecified